=== PATIENT | female | born 1945 | race Hispanic/Latino ===

== ENCOUNTER → 2018-05-01 | Day surgery (SDC) | payer BC, MEDICARE ==
[2018-04-30 11:28] LABS: BASOPHILS # (AUTO) 0.1 (0.0-0.1); BASOPHILS % 0.7 % (0.0-1.0); EOSINOPHILS # (AUTO) 0.4 (0.0-0.4); EOSINOPHILS % 4.7 % (0.0-6.0); HEMATOCRIT 38.8 % (34.2-44.1); HEMOGLOBIN 12.9 g/dL (12.0-16.0); LYMPHOCYTES # (AUTO) 2.7 (1.0-3.2); LYMPHOCYTES % 33.1 % (18.0-39.1); MEAN CORPUSCULAR HEMOGLOBIN 31.6 pg (28-32); MEAN CORPUSCULAR HGB CONC 33.2 g/dL (31-35); MEAN CORPUSCULAR VOLUME 95.1 fL (81-99); MONOCYTES # (AUTO) 0.5 (0.2-0.8); MONOCYTES % 6.5 % (4.4-11.3); NEUTROPHILS # (AUTO) 4.5 (2.1-6.9); NEUTROPHILS % 54.5 % (38.7-80.0); PLATELET COUNT 290 x10e3/uL (140-360); RED BLOOD COUNT 4.08 x10e6/uL (3.6-5.1); RED CELL DISTRIBUTION WIDTH 13.1 % (11.7-14.4)
[2018-04-30 11:49] LABS: ANION GAP 16.3 mmol/L (8-16); CALCIUM 9.9 mg/dL (8.4-10.2); CREATININE, SERUM 0.96 mg/dL (0.57-1.11); POTASSIUM 4.3 mmol/L (3.5-5.1)
[~2018-05-01] MED LIST: BUPIVACAINE 0.5%/EPI 30 ML SDV INJ ONE; CEFAZOLIN SOD 2 GM/D5W 50ML 50 ML IV ONE; DEXAMETHASONE SOD PHOS INJ 4 MG/ML VIAL ONE; EPHEDRINE SULFATE INJ 50 MG/10 ML SYR ONE; FENTANYL CITRATE/PF 100MCG/2 ML INJ ONE; GLIMEPIRIDE2 MG PO; GLYCOPYRROLATE INJ 1MG/ 5 ML SYR ONE; KETOROLAC TROMETHAMINE 30 MG/ML VIAL ONE; LIDOCAINE HCL 2% LOCAL INJ 5 ML SDV VIAL INJ ONE; LISINOPRIL10 MG PO; LOVASTATIN40 MG; ONDANSETRON HCL INJ 2 MG/ML VIAL ONE; PROPOFOL IV EMULSION 10 MG/ML 20 ML VIAL ONE; SEVOFLURANE INHAL SOLN 250 ML PEN BTL ONE
[2018-05-01 11:15] VITALS: BP 116/61
--- NOTE | 2018-05-02 13:26 | Diagnostic Imaging Report ---
Frontal and lateral views of the chest. HISTORY: Preadmission, preop, knee surgery COMPARISON: None available. DISCUSSION: The images are available for interpretation on March 02, 2018 at approximately 1310. Right anterior oblique rotation. Soft tissue attenuation partially limits sensitivity of the exam. Lungs: Minimal bibasilar volume loss. No evidence of a consolidative pneumonia or pulmonary alveolar edema. Pleura: No pleural effusion or pneumothorax. Heart and mediastinum: The cardiomediastinal silhouette appears unremarkable. Bones: Multilevel anterior flowing nonmarginal syndesmophytes with relative preservation of the disc spaces, compatible with DISH (Diffuse idiopathic skeletal hyperostosis). Other: On the lateral view, a few metallic surgical clips project in the abdomen. IMPRESSION: 1. Minimal bibasilar atelectasis versus scarring. 2. Otherwise, no acute radiographic abnormality. Signed by: Dr. Emmett Giang D.O., M.M.M. on 05/02/2018 1:22 PM
--- NOTE | 2018-05-02 16:21 | Operative Report ---
DATE OF PROCEDURE: May 01, 2018 PREOPERATIVE DIAGNOSES 1. Right knee lateral meniscus tear. 2. Right knee degenerative joint disease of the knee. POSTOPERATIVE DIAGNOSES 1. Right knee lateral meniscus tear. 2. Right knee degenerative joint disease of the knee. OPERATIONS/PROCEDURES PERFORMED: The patient underwent 1. Right knee examination under anesthesia. 2. Right knee arthroscopy. 3. Right knee partial lateral meniscectomy. 4. Right knee chondroplasty of the patella, the trochlea, the medial femoral condyle, medial tibial plateau, lateral femoral condyle, and lateral tibial plateau. BUDGET MANAGER: . ANESTHESIA: General endotracheal intubation anesthesia. IV FLUIDS: Per the anesthesia record. DESCRIPTION OF PROCEDURE: Ms. Guaman was taken to the operating room, placed in supine position on the operating table. Following induction of general anesthesia as well as endotracheal intubation, the patient's right lower extremity was examined under anesthesia. She was found to have a mild effusion within the knee joint but otherwise ligamentously stable knee. The patient's lower extremity was prepped and draped in standard surgical fashion. A 2-port technique was used to provide this patient arthroscopic evaluation of the knee joint. Examination of the suprapatellar pouch and medial and lateral gutters found no evidence of loose bodies. There was, however, evidence of chondromalacia of the patellar and trochlear surfaces. Scope was advanced in the medial compartment. Examination of the medial compartment demonstrated no meniscal injury. There was chondromalacia of articulating surface. A shaver was placed in the knee joint and chondroplasties of the medial femoral condyle and medial tibial plateau were performed at this time. Scope was advanced to intercondylar notch and the anterior cruciate ligament was identified and found to be intact. Scope was advanced in the lateral compartment and there was a torn and macerated lateral meniscus. There was also chondromalacia of articulating surfaces. A combination of biting forceps and motorized shaver were used to resect the torn portion of the meniscus. Chondroplasties of the lateral femoral condyle and lateral tibial plateau were performed at this time. Scope was advanced to suprapatellar pouch and chondroplasties of patella and trochlea were performed. The knee was deflated of its sterile normal saline. The portal sites were closed using 4-0 nylon suture. The portal sites as well as the knee itself were injected with 0.5% Marcaine with epinephrine. Sterile dressings were applied. The patient was awakened and taken to postanesthesia care unit in stable and good condition. Job#: [id number] LUDWIG
== END | disposition home or self-care (01) ==
LOC: OR 06:43
PROVIDERS: ATTEND Specialist
DX: S83.261A Peripheral tear of lateral meniscus, current injury, right knee, initial encounter (principal); M17.11 Unilateral primary osteoarthritis, right knee; M22.41 Chondromalacia patellae, right knee; E11.9 Type 2 diabetes mellitus without complications; I10 Essential (primary) hypertension; E78.00 Pure hypercholesterolemia, unspecified; K21.9 Gastro-esophageal reflux disease without esophagitis; X58.XXXA Exposure to other specified factors, initial encounter; Z91.041 Radiographic dye allergy status; Z01.810 Encounter for preprocedural cardiovascular examination; Z01.812 Encounter for preprocedural laboratory examination; Z01.818 Encounter for other preprocedural examination
CPT/HCPCS: 29881; 36415 ×2; 71046; 80048; 82948; 85025; 93005; J1100; J1885; J2001; J2405; J3490; J0690

== ENCOUNTER → 2018-10-04 | Day surgery (SDC) | payer BC, MEDICARE ==
[2018-10-01 11:24] LABS: BASOPHILS # (AUTO) 0.1 (0.0-0.1); BASOPHILS % 0.7 % (0.0-1.0); EOSINOPHILS # (AUTO) 0.3 (0.0-0.4); HEMATOCRIT 38.9 % (34.2-44.1); HEMOGLOBIN 12.6 g/dL (12.0-16.0); LYMPHOCYTES # (AUTO) 2.8 (1.0-3.2); LYMPHOCYTES % 34.3 % (18.0-39.1); MEAN CORPUSCULAR HEMOGLOBIN 30.7 pg (28-32); MEAN CORPUSCULAR HGB CONC 32.4 g/dL (31-35); MEAN CORPUSCULAR VOLUME 94.9 fL (81-99); MONOCYTES # (AUTO) 0.5 (0.2-0.8); MONOCYTES % 5.6 % (4.4-11.3); NEUTROPHILS # (AUTO) 4.6 (2.1-6.9); NEUTROPHILS % 56.2 % (38.7-80.0); PLATELET COUNT 302 x10e3/uL (140-360); RED CELL DISTRIBUTION WIDTH 12.2 % (11.7-14.4)
[2018-10-01 12:21] LABS: CALCIUM 9.5 mg/dL (8.4-10.2); CREATININE, SERUM 0.92 mg/dL (0.57-1.11)
--- NOTE | 2018-10-01 14:32 | Diagnostic Imaging Report ---
EXAM: CHEST 2 VIEWS, PA and lateral DATE: 10/01/2018 Time stamp on exam: 11:09 AM INDICATION: Preoperative COMPARISON: 04/30/2018 FINDINGS: LINES/TUBES: None LUNGS: No consolidations or edema. PLEURA: No effusions or pneumothorax. HEART AND MEDIASTINUM: Normal size and contour. Tortuous thoracic aorta. BONES AND SOFT TISSUES: Degenerative changes of the spine. IMPRESSION: No acute thoracic abnormality. Signed by: Dr. Mac Parada DO on 10/01/2018 12:37 PM
[~2018-10-04] MED LIST changes: +BUPIVACAINE 0.25%/EPI 30ML SDV INJ ONE; -BUPIVACAINE 0.5%/EPI 30 ML SDV INJ ONE; +CEFAZOLIN SOD 1 GM/NS 50ML 50 ML IV ONE; -CEFAZOLIN SOD 2 GM/D5W 50ML 50 ML IV ONE; -GLYCOPYRROLATE INJ 1MG/ 5 ML SYR ONE; +LISINOPRIL-HCT1 EACH PO; +NEOMYCIN/POLYMYX/BACITR OINT 0.9 GM PKT ONE; -ONDANSETRON HCL INJ 2 MG/ML VIAL ONE; +ONDANSETRON HCL INJ 2MG/ML 2ML 2 MG/ML VIAL ONE; +ROCURONIUM BROMIDE 10 MG/ML 5ML VIAL ONE
--- OUTSIDE RECORDS SUMMARY | 2018-10-04 05:16 | XMS REPORT ---
Author [facility] Address Unknown Phone Unavailable Care Team Providers Care Carbon Accountant Name Role Phone ALEX SANTOS Unavailable Unavailable TEMITOPE DENISE Unavailable Unavailable Problems This patient has no known problems. Allergies, Adverse Reactions, Alerts This patient has no known allergies or adverse reactions. Medications This patient has no known medications. Results Test Description Test Time Test Comments Text Results Atomic Results Result Comments CHEST 2 VIEWS 2018-10-01 12:36:00 [place] [address] Patient Name: IRINA GUAJARDO MR #: [id number] : 1945 Age/Sex: 72/F Req #: [id number] Adm Physician: Ordered by: ALEX SANTOS MD Report #: [id number] Location: OR Room/Bed: Procedure: [id number] DX/CHEST 2 VIEWS Exam Date: 10/01/18 Exam Time: 1120 REPORT STATUS: Signed EXAM: CHEST 2 VIEWS, PA and lateral DATE: 10/01/2018 Time stamp on exam: 11:09 AM INDICATION: Preoperative COMPARISON: 04/30/2018 FINDINGS: LINES/TUBES: None LUNGS: No consolidations or edema. PLEURA: No effusions or pneumothorax. HEART AND MEDIASTINUM: Normal size and contour. Tortuous thoracic aorta. BONES AND SOFT TISSUES: Degenerative changes of the spine. IMPRESSION: No acute thoracic abnormality. Signed by: Dr. Amy Parada DO on 10/01/2018 12:37 PM Dictated By: AMY PARADA DO 1237 Transcribed By: KENDELL on 10/01/18 1237 COPY TO: ALEX SANTOS MD CHEST 2 VIEWS 2018-05-02 13:15:00 [place] [address] Patient Name: IRINA GUAJARDO MR #: [id number] : 1945 Age/Sex: 72/F Req #: [id number] Adm Physician: Ordered by: TEMITOPE DENISE MD Report #: [id number] Location: OR Room/Bed: Procedure: [id number] DX/CHEST 2 VIEWS Exam Date: 04/30/18 Exam Time: 1125 REPORT STATUS: Signed Frontal and lateral views of the chest. HISTORY: Preadmission, preop, knee surgery COMPARISON: None available. DISCUSSION: The images are available for interpretation on March 02, 2018 at approximately 1310. Right anterior oblique rotation. Soft tissue attenuation partially limits sensitivity of the exam. Lungs: Minimal bibasilar volume loss. No evidence of a consolidative pneumonia or pulmonary alveolar edema. Pleura: No pleural effusion or pneumothorax. Heart and mediastinum: The cardiomediastinal silhouette appears unremarkable. Bones: Multilevel anterior flowing nonmarginal syndesmophytes with relative preservation of the disc spaces, compatible with DISH (Diffuse idiopathic skeletal hyperostosis). Other: On the lateral view, a few metallic surgical clips project in the abdomen. IMPRESSION: 1. Minimal bibasilar atelectasis versus scarring. 2. Otherwise, no acute radiographic abnormality. Signed by: Dr. Mohan Giang D.O., M.M.M. on 05/02/2018 1:22 PM Dictated By: MOHAN GIANG DO 21 Transcribed By: KENDELL on 05/02/181321 COPY TO: TEMITOPE DENISE MD
[2018-10-04 11:20] VITALS: BP 103/56
--- NOTE | 2018-10-04 18:51 | Operative Report ---
DATE OF PROCEDURE: 10/04/2018 SURGEON: Blair Khan MD PREOPERATIVE DIAGNOSIS: Left inguinal hernia. POSTOPERATIVE DIAGNOSIS: Left inguinal hernia. PROCEDURE PERFORMED: Repair of left inguinal hernia with Ultrapro hernia system oval type. ANESTHESIA: General endotracheal. ESTIMATED BLOOD LOSS: Minimal. DRAINS: None. COMPLICATIONS: None. INDICATION AND FINDINGS: The patient is a morbidly obese 72-year-old female admitted for repair of left inguinal hernia. She had a bulge of the left groin for several months and a CAT scan was performed that revealed a hernia of the left groin and there was some fat in the right groin area, but there was no palpable herniation clinically on that side, so she had the symptomatic and clinically palpable hernia on the left side. INTRAOPERATIVE FINDINGS: The patient had a large visible left inguinal hernia with herniation into the upper part of the pubic region on the left. There was no femoral herniation. The Ultrapro hernia system oval type was placed in the preperitoneal space. DESCRIPTION OF PROCEDURE: With the patient lying on the operating table in the supine position after administration of general endotracheal anesthesia, she was prepped and draped for repair of left inguinal hernia. Preemptive anesthesia was given with 0.25% Marcaine with epinephrine and prophylactic antibiotics was given with Ancef 1 g. A transverse incision was then made and deepened through the skin and subcutaneous tissue until the external oblique aponeurosis was identified along with the hernia bulge. The external oblique aponeurosis was incised along the course of its fibers transecting the external inguinal ring. The hernia was obvious and visible even before we opened the external ring and external oblique aponeurosis. We then developed medial and lateral leaves of the external oblique aponeurosis and then mobilized the hernia at the level of the pubic tubercle and then transected the round ligament proximally and distally and tied off with 0 Vicryl. At this point, then we opened the attenuated transversalis fascia and entered the preperitoneal space. The hernia was very large and in order to reduce it, it consisted mainly of properitoneal fat, I had to do extensive blunt dissection to create a space and to reduce the hernia. After we did this and the entire hernia was reduced into the preperitoneal space, we then deployed the Ultrapro hernia system oval type with the underlay part of the mesh over the direct space in a TachoSil fashion. We covered the femoral canal location, but there was no femoral hernia. We then went ahead and deployed the overlay part of the mesh over the inguinal canal floor and then secured the mesh with a series of interrupted sutures using 2-0 Ethibond sutures. We began the mesh placement at the level of the pubic tubercle and then moved laterally along the inguinal ligament and the iliopubic tract and medially along the rectus fascia sheath under the external oblique aponeurosis. The repair was strong. We performed a Valsalva maneuver and there was no longer any protrusion or bulge. At this point, we copiously irrigated the wound. We further infiltrated the operative field as a block with 0.25% Marcaine with epinephrine and after verification that the sponge and instrument counts were correct, we closed the wound using 0 Vicryl for the external oblique aponeurosis and the subcutaneous tissues were rather abundant and were closed using #0 chromic for the Cirilo's fascia as well as the subcutaneous tissues. The subcuticular plane was closed using 2-0 Vicryl and the skin was closed using a combination of 2-0 silk vertical mattress sutures and alisa. Pressure dressing was applied at the end of the procedure. The patient tolerated the procedure well and taken to the recovery room in stable condition. The family informed of intraoperative findings. MD NYA Gilman/JOI /[id number]
== END | disposition home or self-care (01) ==
LOC: OR 05:05 → MERGE 09:00
PROVIDERS: ATTEND Surgery
DX: K40.90 Unilateral inguinal hernia, without obstruction or gangrene, not specified as recurrent (principal); E66.01 Morbid (severe) obesity due to excess calories; K85.90 Acute pancreatitis without necrosis or infection, unspecified; I49.1 Atrial premature depolarization; I10 Essential (primary) hypertension; E78.5 Hyperlipidemia, unspecified; R01.1 Cardiac murmur, unspecified; I83.90 Asymptomatic varicose veins of unspecified lower extremity; E11.9 Type 2 diabetes mellitus without complications; K21.9 Gastro-esophageal reflux disease without esophagitis; M25.561 Pain in right knee; Z01.810 Encounter for preprocedural cardiovascular examination; Z01.812 Encounter for preprocedural laboratory examination; Z01.818 Encounter for other preprocedural examination; Z91.041 Radiographic dye allergy status; Z79.84 Long term (current) use of oral hypoglycemic drugs; Z68.41 Body mass index [BMI] 40.0-44.9, adult; Z96.659 Presence of unspecified artificial knee joint; Z87.891 Personal history of nicotine dependence
CPT/HCPCS: 36415 ×2; 49505; 71046; 80048; 82948; 85025; 93005; C1781; J0690; J1100; J1885; J2001; J2405; J2704

== ENCOUNTER 2021-02-02 15:19 | Emergency (ER) | payer MEDICARE, BC ==
[~2021-02-02] VITALS: Ht 157.5 cm; Wt 98.4 kg
[~2021-02-02 15:19] MED LIST changes: -BUPIVACAINE 0.25%/EPI 30ML SDV INJ ONE; -CEFAZOLIN SOD 1 GM/NS 50ML 50 ML IV ONE; -DEXAMETHASONE SOD PHOS INJ 4 MG/ML VIAL ONE; -EPHEDRINE SULFATE INJ 50 MG/10 ML SYR ONE; -FENTANYL CITRATE/PF 100MCG/2 ML INJ ONE; -KETOROLAC TROMETHAMINE 30 MG/ML VIAL ONE; -LIDOCAINE HCL 2% LOCAL INJ 5 ML SDV VIAL INJ ONE; -NEOMYCIN/POLYMYX/BACITR OINT 0.9 GM PKT ONE; -ONDANSETRON HCL INJ 2MG/ML 2ML 2 MG/ML VIAL ONE; -PROPOFOL IV EMULSION 10 MG/ML 20 ML VIAL ONE; -ROCURONIUM BROMIDE 10 MG/ML 5ML VIAL ONE; -SEVOFLURANE INHAL SOLN 250 ML PEN BTL ONE
[2021-02-02 16:10] LABS: BASOPHILS % 0.4 % (0.0-1.0); EOSINOPHILS % 0.5 % (0.0-6.0); HEMATOCRIT 38.5 % (34.2-44.1); HEMOGLOBIN 12.7 g/dL (12.0-16.0); LYMPHOCYTES # (AUTO) 1.8 (1.0-3.2); LYMPHOCYTES % 33.6 % (18.0-39.1); MEAN CORPUSCULAR HEMOGLOBIN 31.3 pg (28-32); MEAN CORPUSCULAR VOLUME 94.8 fL (81-99); MONOCYTES # (AUTO) 0.4 (0.2-0.8); MONOCYTES % 7.8 % (4.4-11.3); NEUTROPHILS # (AUTO) 3.2 (2.1-6.9); NEUTROPHILS % 57.5 % (38.7-80.0); PLATELET COUNT 255 x10e3/uL (140-360); RED BLOOD COUNT 4.06 x10e6/uL (3.6-5.1)
[2021-02-02 16:26] LABS: ALBUMIN 3.9 g/dL (3.5-5.0); ALBUMIN/GLOBULIN RATIO 0.9 (0.8-2.0); ANION GAP 16.6 mmol/L (8-16); CALCIUM 9.3 mg/dL (8.4-10.2); CREATININE, SERUM 0.94 mg/dL (0.57-1.11); POTASSIUM 4.6 mmol/L (3.5-5.1)
[2021-02-02 16:32] LABS: CREATINE KINASE MB 9.8 ng/mL (0-5.0)
[2021-02-02] MEDS ORDERED: SODIUM CHLORIDE 0.9% 1000ML 1,000 ML IV STA (18:18)
[2021-02-02] MEDS ORDERED: SODIUM CHLORIDE 0.9% 1000ML 1,000 ML ONE (18:30)
[2021-02-02 20:24] LABS: CREATINE KINASE MB 9.7 ng/mL (0-5.0)
[2021-02-02 20:42] VITALS: BP 144/84
== END 2021-02-02 20:54 | disposition home or self-care (01) ==
LOC: ER 16:08
DX: U07.1 COVID-19 (principal); R07.9 Chest pain, unspecified; I10 Essential (primary) hypertension; E11.9 Type 2 diabetes mellitus without complications; E78.5 Hyperlipidemia, unspecified; Z91.041 Radiographic dye allergy status
CPT/HCPCS: 36415; 71045; 80053; 82550; 82553; 84484; 85025; 93005; 99284; J7030

== ENCOUNTER 2025-05-23 09:59 | Emergency (ER) | payer BC, MEDICARE ==
[~2025-05-23] VITALS: Ht 157.5 cm; Wt 98.4 kg
[2025-05-23] MEDS: KETOROLAC TROMETHAMINE 30 MG/ML VIAL IM STA (11:23)
[2025-05-23] MEDS: TRAMADOL HCL 50 MG TAB PO ONE (11:24)
[2025-05-23] MEDS ORDERED: NAPROXEN375 MG PO (12:14)
[2025-05-23 12:30] VITALS: PULSE 61; RESP 16; TEMP 98.4; O2SAT 96
== END 2025-05-23 12:32 | disposition home or self-care (01) ==
LOC: ER 10:08
DX: M79.604 Pain in right leg (principal); M76.9 Unspecified enthesopathy, lower limb, excluding foot; I10 Essential (primary) hypertension; E11.9 Type 2 diabetes mellitus without complications; E78.5 Hyperlipidemia, unspecified
CPT/HCPCS: 99283; J1885